=== PATIENT | female | born 1995 | race Asian ===

== ENCOUNTER 2016-10-20 20:32 | Emergency (ER) | payer SELFPAY ==
[~2016-10-20] VITALS: Ht 162.6 cm; Wt 63.5 kg
[2016-10-20 20:35] VITALS: Ht 162.6 cm; Wt 63.5 kg
== END 2016-10-20 23:16 | disposition left against medical advice (07) ==
LOC: FTE 20:32
DX: Z53.21 Procedure and treatment not carried out due to patient leaving prior to being seen by health care provider (principal)